=== PATIENT | male | born 1960 | race Caucasian/White ===

== ENCOUNTER → 2016-10-19 | Outpatient (CLI) | payer BC ==
[2016-10-19 15:30] LABS: CHLORIDE,CL 107 mmol/L (98-110); SODIUM,NA 141 mmol/L (136-146)
== END ==
LOC: MW.CHIM 14:36
PROVIDERS: ATTEND Internal Medicine
DX: K52.9 Noninfective gastroenteritis and colitis, unspecified (principal)
CPT/HCPCS: 36415; 80053; 85025

== ENCOUNTER 2018-07-25 06:17 | Observation (INO) | payer BC ==
[2018-07-25] MEDS ORDERED: Sodium Chloride 0.9% 1,000 ML IV ONE ×2 (06:39→08:00)
[2018-07-25] MEDS ORDERED: Ondansetron 4 MG/2 ML SDV IVPUSH ONE (06:39)
[2018-07-25] MEDS ORDERED: Ketorolac 30 MG/ML SDV IVPUSH ONE (06:39)
--- NOTE | 2018-07-25 06:40 | EDM.PDOC ---
ED HPI GENERAL MEDICAL PROBLEM - General Chief Complaint: Abdominal Pain Stated Complaint: ABDOMINAL PAIN; IS ALSO CURRENTLY FASTING Time Seen by Provider: 07/25/18 06:40 Source of Information: Reports: Patient - History of Present Illness INITIAL COMMENTS - FREE TEXT/NARRATIVE: HISTORY AND PHYSICAL: History of present illness: []Patient presents with abdominal pain he rates 7 out of 10 left side of abdomen as well as epigastric, he notes pain is been present for 5 days he has been fasting for 14 days as part of a health cleanse his last bowel movement was 6 days prior normal formed stool at that time Currently liquids are causing abdominal pain he does have some nausea no vomiting no chills or sweats no chest pain shortness breath headache dizziness or palpitation History of diverticulitis with abscess and resection Review of systems: As per history of present illness and below otherwise all systems reviewed and negative. Past medical history: As per history of present illness and as reviewed below otherwise noncontributory. Surgical history: As per history of present illness and as reviewed below otherwise noncontributory. Social history: No reported history of drug or alcohol abuse. Family history: As per history of present illness and as reviewed below otherwise noncontributory. Physical exam: HEENT: Atraumatic, normocephalic, pupils reactive, negative for conjunctival pallor or scleral icterus, mucous membranes moist, throat clear, neck supple, nontender, trachea midline. Lungs: Clear to auscultation, breath sounds equal bilaterally, chest nontender. Heart: S1S2, regular, negative for clicks, rubs, or JVD. Abdomen: Soft, nondistended, nontender. Negative for masses or hepatosplenomegaly. Negative for costovertebral tenderness. Pelvis: Stable nontender. Genitourinary: Deferred. Rectal: Deferred. Extremities: Atraumatic, negative for cords or calf pain. Neurovascular unremarkable. Neuro: Awake, alert, oriented. Cranial nerves II through XII unremarkable. Cerebellum unremarkable. Motor and sensory unremarkable throughout. Exam nonfocal. Skin mild skin tenting on initial exam Diagnostics: []CBC CMP lipase troponin UA DT abdomen pelvis with contrast Therapeutics: []Normal saline Toradol Zofran Patient will be signed out at shift change all lab imaging and treatment pending at time of dictation Impression: []abdominal pain Definitive disposition and diagnosis as appropriate pending reevaluation and review of above. gastric area Pain Score (Numeric/FACES): 7 - Related Data Allergies Allergy/AdvReac Type Severity Reaction Status Date / Time No Known Allergies Allergy Verified 07/25/18 06:21 Home Meds: Home Meds Enalapril [Vasotec] 20 tab PO BID 09/22/15 [History] amLODIPine Besylate [Amlodipine Besylate] 1 tab PO DAILY 07/25/18 [History] hydroCHLOROthiazide [Hydrochlorothiazide] 1 tab PO DAILY 07/25/18 [History] Past Medical History Cardiovascular History: Reports: Hypertension - Past Surgical History GI Surgical History: Reports: Other (See Below) Social & Family History - Family History Family Medical History: Noncontributory ED ROS GENERAL - Review of Systems Review Of Systems: See Below ED EXAM, GENERAL - Physical Exam Exam: See Below Course - Vital Signs Last Recorded V/S: Last Vital Signs Temp 97.6 F 07/26/18 07:59 Pulse 53 L 07/26/18 04:00 Resp 18 07/26/18 07:59 BP 126/66 07/26/18 08:58 Pulse Ox 96 07/26/18 07:59 - Orders/Labs/Meds Labs: Laboratory Tests 07/25/18 07/25/18 07/25/18 Range/Units 07:00 07:00 07:00 WBC 6.62 (4.0-11.0) K/uL RBC 5.15 (4.50-5.90) M/uL Hgb 14.5 (13.0-17.0) g/dL Hct 40.8 (38.0-50.0) % MCV 79.2 L (80.0-98.0) fL MCH 28.1 (27.0-32.0) pg MCHC 37.1 H (31.0-37.0) g/dL RDW Std Deviation 35.2 (28.0-62.0) fl RDW Coeff of Stewart 12 (11.0-15.0) % Plt Count 240 (150-400) K/uL MPV 9.40 (7.40-12.00) fL Neut % (Auto) 46.0 L (48.0-80.0) % Lymph % (Auto) 40.2 H (16.0-40.0) % [place] % (Auto) 11.9 (0.0-15.0) % Eos % (Auto) 1.7 (0.0-7.0) % Baso % (Auto) 0.2 (0.0-1.5) % Neut # (Auto) 3.1 (1.4-5.7) K/uL Lymph # (Auto) 2.7 H (0.6-2.4) K/uL [place] # (Auto) 0.8 (0.0-0.8) K/uL Eos # (Auto) 0.1 (0.0-0.7) K/uL Baso # (Auto) 0.0 (0.0-0.1) K/uL Nucleated RBC % 0.0 /100WBC Nucleated RBCs # 0 K/uL Sodium 129 L (136-148) mmol/L Potassium 2.3 L* (3.5-5.1) mmol/L Chloride 87 L (98-107) mmol/L Carbon Dioxide 24.4 (21.0-32.0) mmol/L BUN 16 (7.0-18.0) mg/dL Creatinine 1.2 (0.8-1.3) mg/dL Est Cr Clr Drug Dosing 52.45 mL/min Estimated GFR (MDRD) > 60.0 ml/min Glucose 94 (74-106) mg/dL Calcium 9.9 (8.5-10.1) mg/dL Phosphorus 3.4 (2.6-4.7) mg/dL Magnesium 1.9 (1.8-2.4) mg/dL Total Bilirubin 1.3 H (0.2-1.0) mg/dL AST 21 (15-37) IU/L ALT 31 (14-63) IU/L Alkaline Phosphatase 61 (46-116) U/L Troponin I < 0.050 (0.000-0.056) ng/mL Total Protein 7.4 (6.4-8.2) g/dL Albumin 4.1 (3.4-5.0) g/dL Globulin 3.3 (2.6-4.0) g/dL Albumin/Globulin Ratio 1.2 (0.9-1.6) Lipase 128 (73-393) U/L Urine Color Urine Appearance Urine pH (5.0-8.0) Ur Specific [place] (1.001-1.035) Urine Protein (NEGATIVE) mg/dL Urine Glucose (UA) (NEGATIVE) mg/dL Urine Ketones (NEGATIVE) mg/dL Urine Occult Blood (NEGATIVE) Urine Nitrite (NEGATIVE) Urine Bilirubin (NEGATIVE) Urine Urobilinogen (<2.0) EU/dL Ur Leukocyte Esterase (NEGATIVE) 07/25/18 Range/Units 07:37 WBC (4.0-11.0) K/uL RBC (4.50-5.90) M/uL Hgb (13.0-17.0) g/dL Hct (38.0-50.0) % MCV (80.0-98.0) fL MCH (27.0-32.0) pg MCHC (31.0-37.0) g/dL RDW Std Deviation (28.0-62.0) fl RDW Coeff of [place] (11.0-15.0) % Plt Count (150-400) K/uL MPV (7.40-12.00) fL Neut % (Auto) (48.0-80.0) % Lymph % (Auto) (16.0-40.0) % [place] % (Auto) (0.0-15.0) % Eos % (Auto) (0.0-7.0) % Baso % (Auto) (0.0-1.5) % Neut # (Auto) (1.4-5.7) K/uL Lymph # (Auto) (0.6-2.4) K/uL [place] # (Auto) (0.0-0.8) K/uL Eos # (Auto) (0.0-0.7) K/uL Baso # (Auto) (0.0-0.1) K/uL Nucleated RBC % /100WBC Nucleated RBCs # K/uL Sodium (136-148) mmol/L Potassium (3.5-5.1) mmol/L Chloride (98-107) mmol/L Carbon Dioxide (21.0-32.0) mmol/L BUN (7.0-18.0) mg/dL Creatinine (0.8-1.3) mg/dL Est Cr Clr Drug Dosing mL/min Estimated GFR (MDRD) ml/min Glucose (74-106) mg/dL Calcium (8.5-10.1) mg/dL Phosphorus (2.6-4.7) mg/dL Magnesium (1.8-2.4) mg/dL Total Bilirubin (0.2-1.0) mg/dL AST (15-37) IU/L ALT (14-63) IU/L Alkaline Phosphatase (46-116) U/L Troponin I (0.000-0.056) ng/mL Total Protein (6.4-8.2) g/dL Albumin (3.4-5.0) g/dL Globulin (2.6-4.0) g/dL Albumin/Globulin Ratio (0.9-1.6) Lipase (73-393) U/L Urine Color YELLOW Urine Appearance CLEAR Urine pH 6.0 (5.0-8.0) Ur Specific [place] 1.010 (1.001-1.035) Urine Protein NEGATIVE (NEGATIVE) mg/dL Urine Glucose (UA) NEGATIVE (NEGATIVE) mg/dL Urine Ketones >=80 (NEGATIVE) mg/dL Urine Occult Blood NEGATIVE (NEGATIVE) Urine Nitrite NEGATIVE (NEGATIVE) Urine Bilirubin NEGATIVE (NEGATIVE) Urine Urobilinogen 0.2 (<2.0) EU/dL Ur Leukocyte Esterase NEGATIVE (NEGATIVE) Meds: Medications Discontinued Medications Generic Name Dose Route Start Last Admin Trade Name Freq PRN Reason Stop Dose Admin Acetaminophen 650 mg 07/25/18 09:09 Tylenol PO Q4H PRN Pain (Mild 1-3)/fever Enalapril Maleate 20 mg 07/25/18 21:00 07/26/18 08:58 Vasotec PO 20 mg BID MARINA Administration Enoxaparin Sodium 40 mg 07/25/18 09:15 07/26/18 09:02 Lovenox SUBCUT 40 mg Q24H MARINA Administration Sodium Chloride 1,000 mls @ 999 mls/hr 07/25/18 06:39 07/25/18 07:07 Normal Saline IV 07/25/18 07:39 999 mls/hr STAT ONE Administration Sodium Chloride 1,000 mls @ 999 mls/hr 07/25/18 08:00 07/25/18 08:10 Normal Saline IV 07/25/18 09:00 999 mls/hr .Bolus ONE Administration Potassium Chloride/Sodium Chloride 1,000 mls @ 100 mls/hr 07/25/18 09:30 10:13 Normal Saline With 20 Meq Kcl IV 100 mls/hr ASDIRECTED MARINA Administration Sodium Chloride 1,000 mls @ 100 mls/hr 07/25/18 13:30 07/26/18 05:49 Normal Saline IV 100 mls/hr ASDIRECTED MARINA Administration Iopamidol 85 ml 07/25/18 08:36 07/25/18 08:37 Isovue Multipack-370 (76%) IVPUSH 07/25/18 08:37 85 ml ONETIME STA Administration Ketorolac Tromethamine 30 mg 07/25/18 06:39 07/25/18 07:05 Toradol IVPUSH 07/25/18 06:40 30 mg ONETIME ONE Administration Non-Formulary Medication 1 tab 07/26/18 09:00 07/26/18 10:22 Amlodipine Besylate PO Not Given DAILY MARINA Ondansetron HCl 8 mg 07/25/18 06:39 07/25/18 07:04 Zofran IVPUSH 07/25/18 06:40 8 mg ONETIME ONE Administration Ondansetron HCl 4 mg 07/25/18 09:09 Zofran IVPUSH Q4H PRN Nausea Potassium Chloride 80 meq 07/25/18 08:00 07/25/18 08:10 Klor-Con M20 PO 07/25/18 08:01 80 meq ONETIME ONE Administration Potassium Chloride Confirm 07/25/18 08:02 07/25/18 08:07 Klor-Con M20 Administered 07/25/18 08:03 Not Given Dose 80 meq .ROUTE .STK-MED ONE Potassium Chloride 40 meq 07/25/18 13:26 07/25/18 13:48 Klor-Con M20 PO 07/25/18 13:27 40 meq ONETIME ONE Administration Potassium Chloride 40 meq 07/25/18 18:41 07/25/18 18:59 Potassium Chloride PO 07/25/18 18:42 40 meq ONETIME ONE Administration Departure - Departure Time of Disposition: 06:11 Disposition: Refer to Observation Condition: Fair Clinical Impression: Abdominal pain - Discharge Information
[2018-07-25 07:58] LABS: CHLORIDE,CL 87 mmol/L (98-107); SODIUM,NA 129 mmol/L (136-148)
[2018-07-25] MEDS ORDERED: Potassium Chloride 20 MEQ Tab.ER PO ONE ×2 (08:00→13:26)
[2018-07-25] MEDS ORDERED: Potassium Chloride 20 MEQ Tab.ER ONE (08:02)
[2018-07-25] MEDS ORDERED: Iopamidol 755 MG/ML 500 ML Multipack Bottle IVPUSH STA (08:36)
--- NOTE | 2018-07-25 08:58 | PCM.HP ---
H&P History of Present Illness - General Date of Service: 07/25/18 Admit Problem/Dx: Admission Diagnosis/Problem Admission Diagnosis/Problem Hypokalemia Source of Information: Patient History Limitations: Reports: No Limitations - History of Present Illness Initial Comments - Free Text/Narative: 57M hx of HTN, Hyperlipidemia that presented to the ER with a chief complaint of abdominal pain that began last night. Patient tells me that for the past 14 days, he has been taking part in a fasting diet that includes water only. He began this diet with the influence of his family and friends who have done this apparently with good results and was planning on doing this for 21 days. He says for the past 5 days, he has felt a "sour stomach with bile build up" and pain that began last night located in his epigastric region. Since presenting to the ER and getting IV fluids, pain medication, and potassium supplementation, he states that his pain has subsided for the most part. He feels a little nauseous but hasn't vomited. He denies any diarrhea or constipation. He has a remote history of diverticulitis 18 years ago for which he had surgery, and has since had no problems in this regard. He states that he had an appointment with his PCP yesterday where a lipid panel was obtained and was apparently elevated and was started on a statin. He has been taking his HTN medications which include HCTZ, enalapril, amlodipine during this fast but stopped all other supplements that he was previously taking. He denies any etoh, tobacco use. gastric area Pain Score (Numeric/FACES): 7 - Related Data Allergies/Adverse Reactions: Allergies Allergy/AdvReac Type Severity Reaction Status Date / Time No Known Allergies Allergy Verified 07/25/18 06:21 Home Medications: Home Meds Enalapril [Vasotec] 20 tab PO BID 09/22/15 [History] amLODIPine Besylate [Amlodipine Besylate] 1 tab PO DAILY 07/25/18 [History] hydroCHLOROthiazide [Hydrochlorothiazide] 1 tab PO DAILY 07/25/18 [History] Past Medical History Cardiovascular History: Reports: Hypertension Gastrointestinal History: Reports: Other (See Below) Other Gastrointestinal History: Divericulitis - Past Surgical History GI Surgical History: Reports: Other (See Below) Social & Family History - Family History Family Medical History: Noncontributory - Tobacco Use Smoking Status *Q: Never Smoker - Recreational Drug Use Recreational Drug Use: No H&P Review of Systems - Review of Systems: Review Of Systems: See Below General: Reports: Other (nausea) HEENT: Reports: No Symptoms Pulmonary: Reports: No Symptoms Cardiovascular: Reports: No Symptoms Gastrointestinal: Reports: Abdominal Pain, Decreased Appetite, Nausea. Denies: Bloody Stool, Constipation, Diarrhea Genitourinary: Reports: No Symptoms Musculoskeletal: Reports: No Symptoms Skin: Reports: No Symptoms Psychiatric: Reports: No Symptoms Neurological: Reports: No Symptoms Hematologic/Lymphatic: Reports: No Symptoms Immunologic: Reports: No Symptoms Exam - Exam Exam: See Below - Vital Signs Vital Signs: Last Vital Signs Temp 36.0 C 07/25/18 06:20 Pulse 68 07/25/18 08:18 Resp 16 07/25/18 08:18 BP 136/85 07/25/18 08:18 Pulse Ox 99 07/25/18 08:18 Weight: 70 kg - Exam General: Alert, Oriented, 4 HEENT: PERRLA, Hearing Intact, Mucosa Moist & [place], Nares Patent, Normal Nasal Septum, Posterior Pharynx Clear, Conjunctiva Clear, EOMI, EACs Clear, TMs Clear Neck: Supple, Trachea Midline, 2 Lungs: Clear to Auscultation, Normal Respiratory Effort Cardiovascular: Regular Rate, Regular Rhythm GI/Abdominal Exam: Normal Bowel Sounds, Soft, Non-Tender, No Organomegaly, No Distention, No Abnormal Bruit, No Mass, Pelvis Stable (Male) Exam: Normal Prostate Back Exam: Normal Inspection, Full Range of Motion, NT Extremities: Normal Inspection, Normal Range of Motion, Non-Tender, No Pedal Edema, Normal Capillary Refill Peripheral Pulses: 2+: Dorsalis Pedis (L), Dorsalis Pedis (R) Skin: Warm, Dry, Intact Neurological: Cranial Nerves Intact, Reflexes Equal Bilateral Neuro Extensive - Mental Status: Alert, Oriented x3, Normal Mood/Affect, Normal Cognition Neuro Extensive - Motor, Sensory, Reflexes: CN II-XII Intact, Normal Gait, Normal Reflexes Psychiatric: Alert, Normal Affect, Normal Mood - Patient Data Lab Results Last 24 hrs: Laboratory Results - last 24 hr 07/25/18 07/25/18 07/25/18 Range/Units 07:00 07:00 07:00 WBC 6.62 (4.0-11.0) K/uL RBC 5.15 (4.50-5.90) M/uL Hgb 14.5 (13.0-17.0) g/dL Hct 40.8 (38.0-50.0) % MCV 79.2 L (80.0-98.0) fL MCH 28.1 (27.0-32.0) pg MCHC 37.1 H (31.0-37.0) g/dL RDW Std Deviation 35.2 (28.0-62.0) fl RDW Coeff of Stewart 12 (11.0-15.0) % Plt Count 240 (150-400) K/uL MPV 9.40 (7.40-12.00) fL Neut % (Auto) 46.0 L (48.0-80.0) % Lymph % (Auto) 40.2 H (16.0-40.0) % [place] % (Auto) 11.9 (0.0-15.0) % Eos % (Auto) 1.7 (0.0-7.0) % Baso % (Auto) 0.2 (0.0-1.5) % Neut # (Auto) 3.1 (1.4-5.7) K/uL Lymph # (Auto) 2.7 H (0.6-2.4) K/uL [place] # (Auto) 0.8 (0.0-0.8) K/uL Eos # (Auto) 0.1 (0.0-0.7) K/uL Baso # (Auto) 0.0 (0.0-0.1) K/uL Nucleated RBC % 0.0 /100WBC Nucleated RBCs # 0 K/uL Sodium 129 L (136-148) mmol/L Potassium 2.3 L* (3.5-5.1) mmol/L Chloride 87 L (98-107) mmol/L Carbon Dioxide 24.4 (21.0-32.0) mmol/L BUN 16 (7.0-18.0) mg/dL Creatinine 1.2 (0.8-1.3) mg/dL Est Cr Clr Drug Dosing 52.45 mL/min Estimated GFR (MDRD) > 60.0 ml/min Glucose 94 (74-106) mg/dL Calcium 9.9 (8.5-10.1) mg/dL Phosphorus 3.4 (2.6-4.7) mg/dL Magnesium 1.9 (1.8-2.4) mg/dL Total Bilirubin 1.3 H (0.2-1.0) mg/dL AST 21 (15-37) IU/L ALT 31 (14-63) IU/L Alkaline Phosphatase 61 (46-116) U/L Troponin I < 0.050 (0.000-0.056) ng/mL Total Protein 7.4 (6.4-8.2) g/dL Albumin 4.1 (3.4-5.0) g/dL Globulin 3.3 (2.6-4.0) g/dL Albumin/Globulin Ratio 1.2 (0.9-1.6) Lipase 128 (73-393) U/L Urine Color Urine Appearance Urine pH (5.0-8.0) Ur Specific [place] (1.001-1.035) Urine Protein (NEGATIVE) mg/dL Urine Glucose (UA) (NEGATIVE) mg/dL Urine Ketones (NEGATIVE) mg/dL Urine Occult Blood (NEGATIVE) Urine Nitrite (NEGATIVE) Urine Bilirubin (NEGATIVE) Urine Urobilinogen (<2.0) EU/dL Ur Leukocyte Esterase (NEGATIVE) 07/25/18 Range/Units 07:37 WBC (4.0-11.0) K/uL RBC (4.50-5.90) M/uL Hgb (13.0-17.0) g/dL Hct (38.0-50.0) % MCV (80.0-98.0) fL MCH (27.0-32.0) pg MCHC (31.0-37.0) g/dL RDW Std Deviation (28.0-62.0) fl RDW Coeff of [place] (11.0-15.0) % Plt Count (150-400) K/uL MPV (7.40-12.00) fL Neut % (Auto) (48.0-80.0) % Lymph % (Auto) (16.0-40.0) % [place] % (Auto) (0.0-15.0) % Eos % (Auto) (0.0-7.0) % Baso % (Auto) (0.0-1.5) % Neut # (Auto) (1.4-5.7) K/uL Lymph # (Auto) (0.6-2.4) K/uL [place] # (Auto) (0.0-0.8) K/uL Eos # (Auto) (0.0-0.7) K/uL Baso # (Auto) (0.0-0.1) K/uL Nucleated RBC % /100WBC Nucleated RBCs # K/uL Sodium (136-148) mmol/L Potassium (3.5-5.1) mmol/L Chloride (98-107) mmol/L Carbon Dioxide (21.0-32.0) mmol/L BUN (7.0-18.0) mg/dL Creatinine (0.8-1.3) mg/dL Est Cr Clr Drug Dosing mL/min Estimated GFR (MDRD) ml/min Glucose (74-106) mg/dL Calcium (8.5-10.1) mg/dL Phosphorus (2.6-4.7) mg/dL Magnesium (1.8-2.4) mg/dL Total Bilirubin (0.2-1.0) mg/dL AST (15-37) IU/L ALT (14-63) IU/L Alkaline Phosphatase (46-116) U/L Troponin I (0.000-0.056) ng/mL Total Protein (6.4-8.2) g/dL Albumin (3.4-5.0) g/dL Globulin (2.6-4.0) g/dL Albumin/Globulin Ratio (0.9-1.6) Lipase (73-393) U/L Urine Color YELLOW Urine Appearance CLEAR Urine pH 6.0 (5.0-8.0) Ur Specific [place] 1.010 (1.001-1.035) Urine Protein NEGATIVE (NEGATIVE) mg/dL Urine Glucose (UA) NEGATIVE (NEGATIVE) mg/dL Urine Ketones >=80 (NEGATIVE) mg/dL Urine Occult Blood NEGATIVE (NEGATIVE) Urine Nitrite NEGATIVE (NEGATIVE) Urine Bilirubin NEGATIVE (NEGATIVE) Urine Urobilinogen 0.2 (<2.0) EU/dL Ur Leukocyte Esterase NEGATIVE (NEGATIVE) Result Diagrams: 07/25/18 07:00 07/25/18 07:00 Problem List Initiated/Reviewed/Updated: Yes Orders Last 24hrs: Active Orders 24 hr Category Date Time Status Patient Status [ADT] Stat ADT 07/25/18 08:41 Active EKG Documentation Completion [RC] STAT Care 07/25/18 08:00 Active Abdomen Pelvis w Cont [CT] Stat Exams 07/25/18 06:47 Taken Sodium Chloride 0.9% [Normal Saline] 1,000 ml Med 07/25/18 08:00 Active IV .Bolus Medication Orders Sodium Chloride (Normal Saline) 1,000 mls @ 999 mls/hr IV .Bolus ONE Stop: 07/25/18 09:00 Last Admin: 07/25/18 08:10 Dose: 999 mls/hr Assessment/Plan Comment:: Assessment: #1. Hypokalemia #2. Mild epigastric pain #3. Hyponatremia #4. Hyperbilirubinemia #5. History of HTN, HLD Plan: #1. Admit to the floor for observation. Cardiac telemetry. Full code. SCD + Lovenox for DVT Prophylaxis. #2. IVNS + 20meq KCl at 100ml/h #3. Recheck potassium at 2pm today. #4. Repeat BMP tomorrow AM #5. Hold HCTZ. continue enalapril, amlodipine. #6. Follow up on CT scan results. #7. PRN Zofran 4mg q4h for nausea
--- NOTE | 2018-07-25 09:05 | CT ---
CT of the abdomen and pelvis with contrast. HISTORY: Pain TECHNIQUE: Axial CT images were obtained of the abdomen and pelvis following administration of 85 mL of Isovue-370 in left antecubital fossa without complication. Coronal and sagittal reconstructions obtained. FINDINGS: The lung bases are clear, no pleural effusion. There is a 2.4 cm incomplete peripheral enhancing lesion within the inferior right hepatic lobe. Probable cholelithiasis without evidence cholecystitis. Spleen, adrenal glands, and pancreas appear normal. There is no bulky retroperitoneal lymphadenopathy or abdominal ascites. 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 The right renal pelvis and calyces are mildly prominent however no obstructing stone is identified. There is a nonobstructing stone noted on the left aspect of the kidney. Renal cortical cysts also noted. The large and small bowel are normal in caliber without evidence of obstruction. No focal pericolonic inflammation or stranding. The appendix is normal. The urinary bladder is normal. The prostate is mildly prominent in size. There is no pelvic lymphadenopathy or free pelvic fluid. No suspicious osseous abnormalities identified. Degenerative changes within the lower lumbar spine. IMPRESSION: 1. 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 2. Nonobstructing left nephrolithiasis. 3. There is a probable 2.4 cm inferior right hepatic lobe hemangioma. However confirmation with an ultrasound may be beneficial. 4. Possible cholelithiasis without evidence cholecystitis.
[2018-07-25] MEDS ORDERED: Acetaminophen 325 MG Tab PO PRN (09:09)
[2018-07-25] MEDS ORDERED: Ondansetron 4 MG/2 ML SDV IVPUSH PRN (09:09)
[2018-07-25] MEDS ORDERED: NS + KCl 20mEq/L 1,000 ML IV SCH (09:30)
[2018-07-25] MEDS: Enoxaparin 40 MG/0.4 ML Syringe SUBCUT SCH (10:13)
--- NOTE | 2018-07-25 10:38 | US ---
EXAMINATION: CT abdomen and pelvis HISTORY: Liver hemangioma COMPARISON: 07/25/2018 TECHNIQUE: Grayscale and color Doppler imaging obtained of the right upper quadrant. FINDINGS: The visualized pancreas appears normal. There is a 2.2 cm hypoechogenicity within the lower right hepatic lobe has a hyperechoic component along the periphery. This is not the typical appearance of a hemangioma sonographically. Otherwise the liver is unremarkable. The gallbladder wall thickness is normal. No pericholecystic fluid or shadowing gallstones. Common bile duct measures 4 mm. No shadowing gallstones identified. Horseshoe kidney configuration is again noted. IMPRESSION: 1. No evidence of cholelithiasis or cholecystitis sonographically. 2. There is a 2 x 2.7 cm predominantly hypoechoic nodule within the lower right hepatic lobe. This does not have the characteristic comparison of a hemangioma. Additional follow-up with a hepatic protocol CT or MRI may be beneficial.
[2018-07-25] MEDS ORDERED: Potassium Chloride 10% 20 MEQ/15 ML Soln 30 ML UD Cup PO ONE (18:41)
[2018-07-25] MEDS: Sodium Chloride 0.9% 1,000 ML IV SCH (20:11)
[2018-07-26] MEDS: Sodium Chloride 0.9% 1,000 ML IV SCH (05:49)
[2018-07-26 06:02] LABS: CHLORIDE,CL 105 mmol/L (98-107); SODIUM,NA 139 mmol/L (136-148)
--- NOTE | 2018-07-26 08:33 | PCM.DCSUM1 ---
<Mateo Palomo - Last Filed: 07/26/18 10:14> Discharge Summary - Hospital Course Free Text/Narrative:: Admission date: 07/25/2018 Discharge date: 07/26/2018 Admission diagnosis: #1. Hypokalemia #2. Mild epigastric pain #3. Hyponatremia #4. Hyperbilirubinemia #5. History of HTN, HLD Discharge Diagnosis: #1. Hypokalemia - resolved #2. Mild epigastric pain #3. Hyponatremia #4. Hyperbilirubinemia #5. History of HTN, HLD #6. Hypoechoic liver nodule noted both on CT, ultrasound Hospital course: 57M hx as stated above that presented to the ER with a chief complaint of abdominal pain, nausea that began a few days prior to presentation. Patient stated that he had been on a fasting diet for the past 14 days which included only water and his hypertension medications. He was found in the ER to have a potassium of 2.2, thus admitted for observation and electrolyte correction. He did well overnight with no overnight events. Patient did have an abdominal CT ordered in the ER which showed a hypoechoic liver nodule. I obtained an ultrasound of the liver which should a lesion of similar characteristics. It is recommended by radiology that it may be beneficial to get an MRI or hepatic focused CT for better characterization of this nodule. Patient does not have any hx of liver pathology. He was advised that he should follow up with his PCP within 1 week for a recheck on his potassium and was encouraged to not start any new diets without first consulting a physician. He understands, and agrees to the plan. - Discharge Data Discharge Date: 07/26/18 Discharge Disposition: Home, Self-Care 01 Condition: Fair - Patient Instructions Diet: Regular Diet as Tolerated Activity: As Tolerated Driving: May Drive Today Showering/Bathing: May Shower Notify Provider of: Fever Other/Special Instructions: Please refrain from starting any new diets without consulting your primary care provider. Return to the clinic next week for a recheck on your potassium. - Discharge Plan Home Medications: Home Meds Enalapril [Vasotec] 20 tab PO BID 09/22/15 [History] amLODIPine Besylate [Amlodipine Besylate] 1 tab PO DAILY 07/25/18 [History] hydroCHLOROthiazide [Hydrochlorothiazide] 1 tab PO DAILY 07/25/18 [History] Patient Handouts: Hypokalemia Referrals: [facility] [Outside] Mateo Palomo MD [Resident] - 08/02/18 2:00 pm - Discharge Summary/Plan Comment DC Time >30 min.: No - Patient Data Vitals - Most Recent: Last Vital Signs Temp 36.4 C 07/26/18 07:59 Pulse 53 L 07/26/18 04:00 Resp 18 07/26/18 07:59 BP 117/66 07/26/18 07:59 Pulse Ox 96 07/26/18 07:59 Weight - Most Recent: 71.713 kg I&O - Last 24 hours: Intake & Output 07/25/18 07/26/18 07/26/18 22:59 06:59 14:59 Intake Total 1230 2310 Output Total 1670 2020 Balance -440 290 Lab Results - Last 24 hrs: Laboratory Results - last 24 hr 07/25/18 07/25/18 07/26/18 Range/Units 07:00 12:15 05:37 Sodium 139 (136-148) mmol/L Potassium 3.3 L 4.4 (3.5-5.1) mmol/L Chloride 105 (98-107) mmol/L Carbon Dioxide 31.4 (21.0-32.0) mmol/L BUN 5 L (7.0-18.0) mg/dL Creatinine 1.0 (0.8-1.3) mg/dL Est Cr Clr Drug Dosing 62.94 mL/min Estimated GFR (MDRD) > 60.0 ml/min Glucose 94 (74-106) mg/dL Calcium 8.8 (8.5-10.1) mg/dL Phosphorus 3.4 (2.6-4.7) mg/dL Magnesium 1.9 (1.8-2.4) mg/dL Total Bilirubin 0.4 (0.2-1.0) mg/dL AST 17 (15-37) IU/L ALT 30 (14-63) IU/L Alkaline Phosphatase 54 (46-116) U/L Total Protein 5.8 L (6.4-8.2) g/dL Albumin 3.2 L (3.4-5.0) g/dL Globulin 2.6 (2.6-4.0) g/dL Albumin/Globulin Ratio 1.2 (0.9-1.6) NICK Results - Last 24 hrs: Microbiology 07/25/18 19:05 Clostridium difficile Toxin A & B - Final Stool / Feces Negative for C.Diff Toxin/AG Stool for WBCs - Final NEGATIVE FOR WBC'S 07/25/18 19:05 Campylobacter Antigen Assay - Final Stool / Feces NEGATIVE [facility] Med Orders - Current: Current Medications Acetaminophen (Tylenol) 650 mg PO Q4H PRN PRN Reason: Pain (Mild 1-3)/fever Enalapril Maleate (Vasotec) 20 mg PO BID [facility] Last Admin: 07/25/18 20:09 Dose: 20 mg Enoxaparin Sodium (Lovenox) 40 mg SUBCUT Q24H [facility] Last Admin: 07/25/18 10:13 Dose: 40 mg Sodium Chloride (Normal Saline) 1,000 mls @ 100 mls/hr IV ASDIRECTED [facility] Last Admin: 07/26/18 05:49 Dose: 100 mls/hr Non-Formulary Medication (Amlodipine Besylate) 1 tab PO DAILY [facility] Ondansetron HCl (Zofran) 4 mg IVPUSH Q4H PRN PRN Reason: Nausea Discontinued Medications Sodium Chloride (Normal Saline) 1,000 mls @ 999 mls/hr IV STAT ONE Stop: 07/25/18 07:39 Last Admin: 07/25/18 07:07 Dose: 999 mls/hr Sodium Chloride (Normal Saline) 1,000 mls @ 999 mls/hr IV .Bolus ONE Stop: 07/25/18 09:00 Last Admin: 07/25/18 08:10 Dose: 999 mls/hr Potassium Chloride/Sodium Chloride (Normal Saline With 20 Meq Kcl) 1,000 mls @ 100 mls/hr IV ASDIRECTED [facility] Last Admin: 07/25/18 10:13 Dose: 100 mls/hr Iopamidol (Isovue Multipack-370 (76%)) 85 ml IVPUSH ONETIME STA Stop: 07/25/18 08:37 Last Admin: 07/25/18 08:37 Dose: 85 ml Ketorolac Tromethamine (Toradol) 30 mg IVPUSH ONETIME ONE Stop: 07/25/18 06:40 Last Admin: 07/25/18 07:05 Dose: 30 mg Ondansetron HCl (Zofran) 8 mg IVPUSH ONETIME ONE Stop: 07/25/18 06:40 Last Admin: 07/25/18 07:04 Dose: 8 mg Potassium Chloride (Klor-Con M20) 80 meq PO ONETIME ONE Stop: 07/25/18 08:01 Last Admin: 07/25/18 08:10 Dose: 80 meq Potassium Chloride (Klor-Con M20) Confirm Administered Dose 80 meq .ROUTE .STK- MED ONE Stop: 07/25/18 08:03 Last Admin: 07/25/18 08:07 Dose: Not Given Potassium Chloride (Klor-Con M20) 40 meq PO ONETIME ONE Stop: 07/25/18 13:27 Last Admin: 07/25/18 13:48 Dose: 40 meq Potassium Chloride (Potassium Chloride) 40 meq PO ONETIME ONE Stop: 07/25/18 18:42 Last Admin: 07/25/18 18:59 Dose: 40 meq <Milo Matta - Last Filed: 07/26/18 23:23> - Patient Data Vitals - Most Recent: Last Vital Signs Temp 36.4 C 07/26/18 07:59 Pulse 53 L 07/26/18 04:00 Resp 18 07/26/18 07:59 BP 126/66 07/26/18 08:58 Pulse Ox 96 07/26/18 07:59 Lab Results - Last 24 hrs: Laboratory Results - last 24 hr 07/26/18 Range/Units 05:37 Sodium 139 (136-148) mmol/L Potassium 4.4 (3.5-5.1) mmol/L Chloride 105 (98-107) mmol/L Carbon Dioxide 31.4 (21.0-32.0) mmol/L BUN 5 L (7.0-18.0) mg/dL Creatinine 1.0 (0.8-1.3) mg/dL Est Cr Clr Drug Dosing 62.94 mL/min Estimated GFR (MDRD) > 60.0 ml/min Glucose 94 (74-106) mg/dL Calcium 8.8 (8.5-10.1) mg/dL Total Bilirubin 0.4 (0.2-1.0) mg/dL AST 17 (15-37) IU/L ALT 30 (14-63) IU/L Alkaline Phosphatase 54 (46-116) U/L Total Protein 5.8 L (6.4-8.2) g/dL Albumin 3.2 L (3.4-5.0) g/dL Globulin 2.6 (2.6-4.0) g/dL Albumin/Globulin Ratio 1.2 (0.9-1.6) NICK Results - Last 24 hrs: Microbiology 07/25/18 19:05 Campylobacter Antigen Assay - Final Stool / Feces NEGATIVE [facility] Shiga Toxin I - Final NEGATIVE FOR SHIGA TOXIN 1 Shiga Toxin II - Final NEGATIVE FOR SHIGA TOXIN 2 07/25/18 19:05 Clostridium difficile Toxin A & B - Final Stool / Feces Negative for C.Diff Toxin/AG Stool for WBCs - Final NEGATIVE FOR WBC'S Med Orders - Current: Current Medications Discontinued Medications Acetaminophen (Tylenol) 650 mg PO Q4H PRN PRN Reason: Pain (Mild 1-3)/fever Enalapril Maleate (Vasotec) 20 mg PO BID [facility] Last Admin: 07/26/18 08:58 Dose: 20 mg Enoxaparin Sodium (Lovenox) 40 mg SUBCUT Q24H [facility] Last Admin: 07/26/18 09:02 Dose: 40 mg Sodium Chloride (Normal Saline) 1,000 mls @ 999 mls/hr IV STAT ONE Stop: 07/25/18 07:39 Last Admin: 07/25/18 07:07 Dose: 999 mls/hr Sodium Chloride (Normal Saline) 1,000 mls @ 999 mls/hr IV .Bolus ONE Stop: 07/25/18 09:00 Last Admin: 07/25/18 08:10 Dose: 999 mls/hr Potassium Chloride/Sodium Chloride (Normal Saline With 20 Meq Kcl) 1,000 mls @ 100 mls/hr IV ASDIRECTED [facility] Last Admin: 07/25/18 10:13 Dose: 100 mls/hr Sodium Chloride (Normal Saline) 1,000 mls @ 100 mls/hr IV ASDIRECTED [facility] Last Admin: 07/26/18 05:49 Dose: 100 mls/hr Iopamidol (Isovue Multipack-370 (76%)) 85 ml IVPUSH ONETIME STA Stop: 07/25/18 08:37 Last Admin: 07/25/18 08:37 Dose: 85 ml Ketorolac Tromethamine (Toradol) 30 mg IVPUSH ONETIME ONE Stop: 07/25/18 06:40 Last Admin: 07/25/18 07:05 Dose: 30 mg Non-Formulary Medication (Amlodipine Besylate) 1 tab PO DAILY [facility] Last Admin: 07/26/18 10:22 Dose: Not Given Ondansetron HCl (Zofran) 8 mg IVPUSH ONETIME ONE Stop: 07/25/18 06:40 Last Admin: 07/25/18 07:04 Dose: 8 mg Ondansetron HCl (Zofran) 4 mg IVPUSH Q4H PRN PRN Reason: Nausea Potassium Chloride (Klor-Con M20) 80 meq PO ONETIME ONE Stop: 07/25/18 08:01 Last Admin: 07/25/18 08:10 Dose: 80 meq Potassium Chloride (Klor-Con M20) Confirm Administered Dose 80 meq .ROUTE .STK- MED ONE Stop: 07/25/18 08:03 Last Admin: 07/25/18 08:07 Dose: Not Given Potassium Chloride (Klor-Con M20) 40 meq PO ONETIME ONE Stop: 07/25/18 13:27 Last Admin: 07/25/18 13:48 Dose: 40 meq Potassium Chloride (Potassium Chloride) 40 meq PO ONETIME ONE Stop: 07/25/18 18:42 Last Admin: 07/25/18 18:59 Dose: 40 meq - Free Text/Narrative Note: I have seen and examined the patient. I have discussed findings and treatment plan with the resident. I agree with the assessment and plan outlined in the following resident's note.
[2018-07-26 09:00] VITALS: BP 126/66
[2018-07-26] MEDS ORDERED: AMLODIPINE BESYLATE PO SCH (09:00)
[2018-07-26] MEDS: Enoxaparin 40 MG/0.4 ML Syringe SUBCUT SCH (09:02)
== END 2018-07-26 10:34 | disposition home or self-care (01) ==
LOC: MW.ED 06:17 → MW.MS 08:41
PROVIDERS: ADMIT Internal Medicine; ATTEND Internal Medicine
DX: E87.6 Hypokalemia (principal); R10.13 Epigastric pain; E87.1 Hypo-osmolality and hyponatremia; E80.6 Other disorders of bilirubin metabolism; R93.2 Abnormal findings on diagnostic imaging of liver and biliary tract; N20.0 Calculus of kidney; I10 Essential (primary) hypertension; E78.5 Hyperlipidemia, unspecified; Z79.899 Other long term (current) drug therapy
CPT/HCPCS: 36415; 74177; 76705; 80053; 81003; 83630; 83690; 83735; 84100; 84132; 84484; 85025; 87046; 87324; 87899; 96361; 96372; 96374; 96375; 99285; A9270; G0378; J1650; J1885; J2405; J3480; J7040; Q9967